=== PATIENT | male | born 1960 | race Caucasian/White ===

== ENCOUNTER 2017-11-12 23:00 | Inpatient (IN) | payer OTHER ==
[2017-11-13] MEDS ORDERED: ALBUTEROL/IPRATROPIUM (NEB) 3 ML AMP NEB (01:00)
[2017-11-13] MEDS ORDERED: NITROGLYCERIN (SL) 0.4 MG TAB SL (01:00)
[2017-11-13] MEDS ORDERED: ACETAMINOPHEN 650MG/20.3ML CUP PO (01:00)
[2017-11-13] MEDS: DEXTROSE 5%-0.45% NACL 1,000 ML IV ×3 (01:52→19:57)
[2017-11-13 06:16] LABS: ADD MAN DIFF? NO
[2017-11-13 06:18] LABS: BASOPHIL # 0.1 10^3/ul (0.0-0.1); BASOPHILS % 0.5 % (0.0-2.0); EOSINOPHILS # 0.3 10^3/ul (0.0-0.5); EOSINOPHILS % 2.6 % (0.0-7.0); HEMATOCRIT 44.1 % (42.0-52.0); HEMOGLOBIN 15.2 g/dl (14.0-18.0); LYMPHOCYTES # 2.8 10^3/ul (0.8-2.9); LYMPHOCYTES % 24.4 % (15.0-51.0); MEAN CORPUSCULAR HGB CONC 34.5 g/dl (32.0-37.0); MEAN PLATELET VOLUME 9.5 fl (7.4-10.4); MONOCYTES % 9.1 % (0.0-11.0); NEUTROPHIL # 7.1 10^3/ul (1.6-7.5); NEUTROPHILS % 62.5 % (39.0-77.0); NUCLEATED RED BLOOD CELLS # 0.1 10^3/ul (0.0-0.0); NUCLEATED RED BLOOD CELLS% 0.4 /100WBC (0.0-0.0); PLATELET COUNT 253 10^3/UL (140-415); RED BLOOD COUNT 5.07 10^6/ul (4.70-6.10); RED CELL DISTRIBUTION WIDTH 13.1 % (11.5-14.5)
[2017-11-13 06:18] LABS: WHITE BLOOD COUNT 11.4 10^3/ul (4.8-10.8)
[2017-11-13 06:46] LABS: ALANINE AMINOTRANSFERASE 63 IU/L (13-69); ALBUMIN/GLOBULIN RATIO 1.42; ALKALINE PHOSPHATASE 49 IU/L (42-121); ANION GAP 13 (8-16); ASPARTATE AMINO TRANSFERASE 28 IU/L (15-46); BILIRUBIN,INDIRECT 0.7 mg/dl (0-1.1); BILIRUBIN,TOTAL 0.7 mg/dl (0.2-1.3); BLOOD UREA NITROGEN 20 mg/dl (7-20); CALCIUM 8.5 mg/dl (8.4-10.2); CARBON DIOXIDE 28 mmol/L (21-31); CHLORIDE 103 mmol/L (97-110); CREATININE 1.24 mg/dl (0.61-1.24); GLUCOSE 104 mg/dl (70-220); MAGNESIUM 2.3 mg/dl (1.7-2.5); POTASSIUM 3.7 mmol/L (3.5-5.1); SODIUM 140 mmol/L (135-144); TOTAL PROTEIN 6.8 g/dl (6.1-8.1)
[2017-11-13] MEDS: FAMOTIDINE 20 MG INJ IV (09:07)
[2017-11-13] MEDS: FENOFIBRATE 48 MG TAB PO (09:08)
[2017-11-13] MEDS: LISINOPRIL 10 MG TAB PO (09:08)
[2017-11-13] MEDS: AMLODIPINE 5 MG TAB PO (09:08)
[2017-11-13] MEDS: morphine 2 MG INJ IV ×2 (10:09→18:08)
[2017-11-13 10:49] LABS: PLATELET COUNT 241 10^3/UL (140-415)
[2017-11-13 11:11] LABS: LACTIC ACID 1.1 mmol/L (0.5-2.0)
[2017-11-13 11:12] LABS: CREATINE KINASE 179 IU/L (23-200)
[2017-11-13 11:22] LABS: INR 2.96; PROTIME 31.7 Sec (11.9-14.9); PT RATIO 2.5
[2017-11-13 11:23] LABS: CK INDEX 1.4; CK-MB 2.53 ng/ml (0.0-2.4); THROMBIN TIME 15.1 SEC (13.8-19.1); TROPONIN-I < 0.012 ng/ml (0.00-0.12)
[2017-11-13 11:24] LABS: PARTIAL THROMBOPLASTIN TIME 60.1 Sec (25.0-35.0)
[2017-11-13] MEDS ORDERED: HEPARIN 1000 UNITS/ML 10 ML INJ IV (13:30)
[2017-11-13 13:41] LABS: ADD MAN DIFF? NO
[2017-11-13 13:41] LABS: WHITE BLOOD COUNT 11.5 10^3/ul (4.8-10.8)
[2017-11-13 13:42] LABS: BASOPHIL # 0.1 10^3/ul (0.0-0.1); BASOPHILS % 0.4 % (0.0-2.0); EOSINOPHILS # 0.3 10^3/ul (0.0-0.5); EOSINOPHILS % 2.5 % (0.0-7.0); HEMATOCRIT 44.2 % (42.0-52.0); HEMOGLOBIN 14.9 g/dl (14.0-18.0); LYMPHOCYTES # 2.6 10^3/ul (0.8-2.9); LYMPHOCYTES % 22.5 % (15.0-51.0); MEAN CORPUSCULAR HEMOGLOBIN 29.3 pg (29.0-33.0); MEAN CORPUSCULAR HGB CONC 33.7 g/dl (32.0-37.0); MEAN CORPUSCULAR VOLUME 86.8 fl (82.0-101.0); MEAN PLATELET VOLUME 9.3 fl (7.4-10.4); MONOCYTE # 0.9 10^3/ul (0.3-0.9); MONOCYTES % 7.5 % (0.0-11.0); NEUTROPHIL # 7.6 10^3/ul (1.6-7.5); NEUTROPHILS % 66.5 % (39.0-77.0); PLATELET COUNT 260 10^3/UL (140-415); RED BLOOD COUNT 5.09 10^6/ul (4.70-6.10); RED CELL DISTRIBUTION WIDTH 12.6 % (11.5-14.5)
[2017-11-13 13:58] LABS: INR 2.73; PROTIME 29.7 Sec (11.9-14.9); PT RATIO 2.3
[2017-11-13 13:59] LABS: PARTIAL THROMBOPLASTIN TIME 57.6 Sec (25.0-35.0)
[2017-11-13 14:01] LABS: CREATINE KINASE 173 IU/L (23-200)
[2017-11-13 14:11] LABS: CK INDEX 1.4
[2017-11-13 14:16] LABS: CK-MB 2.35 ng/ml (0.0-2.4); TROPONIN-I < 0.012 ng/ml (0.00-0.12)
[2017-11-13] MEDS ORDERED: LABETALOL 200 MG in SOD CHLORIDE 0.9% 160 ML IV (14:30)
[2017-11-13] MEDS: HYDROCHLOROTHIAZIDE 12.5 MG CAP PO (15:26)
[2017-11-13] MEDS: ONDANSETRON 4 MG INJ IV (18:07)
[2017-11-13] MEDS: HEPARIN 25000 UNITS/250 ML 250 ML IV (19:57)
[2017-11-13] MEDS: DOCUSATE SODIUM 100 MG CAP PO (20:44)
[2017-11-13] MEDS: ATORVASTATIN 40 MG TAB PO (20:45)
[2017-11-14] MEDS: morphine 2 MG INJ IV ×4 (00:17→20:33)
[2017-11-14 03:38] LABS: ADD MAN DIFF? NO
[2017-11-14 03:58] LABS: ANION GAP 11 (8-16); BLOOD UREA NITROGEN 15 mg/dl (7-20); CALCIUM 8.2 mg/dl (8.4-10.2); CARBON DIOXIDE 27 mmol/L (21-31); CHLORIDE 105 mmol/L (97-110); CREATININE 1.18 mg/dl (0.61-1.24); GLUCOSE 119 mg/dl (70-220); MAGNESIUM 2.3 mg/dl (1.7-2.5); PHOSPHORUS 2.9 mg/dl (2.5-4.9); POTASSIUM 3.5 mmol/L (3.5-5.1); SODIUM 139 mmol/L (135-144)
[2017-11-14 04:33] LABS: WHITE BLOOD COUNT 9.6 10^3/ul (4.8-10.8)
[2017-11-14 04:33] LABS: BASOPHILS % 0.4 % (0.0-2.0); EOSINOPHILS # 0.3 10^3/ul (0.0-0.5); EOSINOPHILS % 3.2 % (0.0-7.0); HEMATOCRIT 42.7 % (42.0-52.0); HEMOGLOBIN 14.6 g/dl (14.0-18.0); LYMPHOCYTES # 2.3 10^3/ul (0.8-2.9); LYMPHOCYTES % 23.8 % (15.0-51.0); MEAN CORPUSCULAR HEMOGLOBIN 29.9 pg (29.0-33.0); MEAN CORPUSCULAR HGB CONC 34.2 g/dl (32.0-37.0); MEAN CORPUSCULAR VOLUME 87.5 fl (82.0-101.0); MEAN PLATELET VOLUME 9.7 fl (7.4-10.4); MONOCYTE # 0.8 10^3/ul (0.3-0.9); MONOCYTES % 8.2 % (0.0-11.0); NEUTROPHIL # 6.1 10^3/ul (1.6-7.5); NEUTROPHILS % 63.7 % (39.0-77.0); PLATELET COUNT 240 10^3/UL (140-415); RED BLOOD COUNT 4.88 10^6/ul (4.70-6.10); RED CELL DISTRIBUTION WIDTH 12.5 % (11.5-14.5)
[2017-11-14 04:59] LABS: PARTIAL THROMBOPLASTIN TIME > 180.0 Sec (25.0-35.0)
[2017-11-14] MEDS: DEXTROSE 5%-0.45% NACL 1,000 ML IV ×3 (05:37→16:35)
[2017-11-14] MEDS: FENOFIBRATE 48 MG TAB PO (10:42)
[2017-11-14] MEDS: DOCUSATE SODIUM 100 MG CAP PO ×2 (10:42→20:32)
[2017-11-14] MEDS: HYDROCHLOROTHIAZIDE 12.5 MG CAP PO (10:43)
[2017-11-14] MEDS: LISINOPRIL 10 MG TAB PO (10:44)
[2017-11-14] MEDS: AMLODIPINE 5 MG TAB PO (10:44)
[2017-11-14] MEDS: HEPARIN 25000 UNITS/250 ML 250 ML IV (10:49)
[2017-11-14 17:34] LABS: PARTIAL THROMBOPLASTIN TIME 76.8 Sec (25.0-35.0)
[2017-11-14] MEDS: ATORVASTATIN 40 MG TAB PO (20:32)
[2017-11-15] MEDS: morphine 2 MG INJ IV ×2 (00:58→17:59)
[2017-11-15] MEDS: DEXTROSE 5%-0.45% NACL 1,000 ML IV ×3 (00:58→20:53)
[2017-11-15 02:31] LABS: PARTIAL THROMBOPLASTIN TIME 77.7 Sec (25.0-35.0)
[2017-11-15] MEDS: HEPARIN 25000 UNITS/250 ML 250 ML IV (02:58)
[2017-11-15] MEDS: LORAZEPAM 2 MG INJ IV ×5 (03:08→23:43)
[2017-11-15] MEDS: HYDROCHLOROTHIAZIDE 12.5 MG CAP PO (08:02)
[2017-11-15] MEDS: LISINOPRIL 10 MG TAB PO (08:03)
[2017-11-15] MEDS: AMLODIPINE 5 MG TAB PO (08:03)
[2017-11-15] MEDS: DOCUSATE SODIUM 100 MG CAP PO ×2 (08:03→20:52)
[2017-11-15] MEDS: FENOFIBRATE 48 MG TAB PO (08:03)
[2017-11-15 09:39] LABS: PARTIAL THROMBOPLASTIN TIME 55.4 Sec (25.0-35.0)
[2017-11-15 14:04] LABS: LACTIC ACID 1.3 mmol/L (0.5-2.0)
[2017-11-15] MEDS: ATORVASTATIN 40 MG TAB PO (20:53)
[2017-11-16 00:33] LABS: PARTIAL THROMBOPLASTIN TIME 64.8 Sec (25.0-35.0)
[2017-11-16 05:31] LABS: ADD MAN DIFF? NO
[2017-11-16 05:34] LABS: BASOPHILS % 0.4 % (0.0-2.0); EOSINOPHILS # 0.3 10^3/ul (0.0-0.5); EOSINOPHILS % 3.6 % (0.0-7.0); HEMATOCRIT 41.6 % (42.0-52.0); HEMOGLOBIN 14.2 g/dl (14.0-18.0); LYMPHOCYTES # 1.7 10^3/ul (0.8-2.9); LYMPHOCYTES % 23.2 % (15.0-51.0); MEAN CORPUSCULAR HEMOGLOBIN 29.9 pg (29.0-33.0); MEAN CORPUSCULAR HGB CONC 34.1 g/dl (32.0-37.0); MEAN CORPUSCULAR VOLUME 87.6 fl (82.0-101.0); MEAN PLATELET VOLUME 9.6 fl (7.4-10.4); MONOCYTE # 0.7 10^3/ul (0.3-0.9); MONOCYTES % 8.8 % (0.0-11.0); NEUTROPHIL # 4.8 10^3/ul (1.6-7.5); NEUTROPHILS % 63.6 % (39.0-77.0); PLATELET COUNT 237 10^3/UL (140-415); RED BLOOD COUNT 4.75 10^6/ul (4.70-6.10)
[2017-11-16 05:34] LABS: WHITE BLOOD COUNT 7.5 10^3/ul (4.8-10.8)
[2017-11-16 05:53] LABS: ALANINE AMINOTRANSFERASE 59 IU/L (13-69); ALBUMIN 3.6 g/dl (3.3-4.9); ALBUMIN/GLOBULIN RATIO 1.05; ALKALINE PHOSPHATASE 71 IU/L (42-121); ANION GAP 10 (8-16); ASPARTATE AMINO TRANSFERASE 27 IU/L (15-46); BILIRUBIN,INDIRECT 0.7 mg/dl (0-1.1); BILIRUBIN,TOTAL 0.7 mg/dl (0.2-1.3); BLOOD UREA NITROGEN 9 mg/dl (7-20); CALCIUM 8.7 mg/dl (8.4-10.2); CARBON DIOXIDE 22 mmol/L (21-31); CHLORIDE 108 mmol/L (97-110); CREATININE 1.06 mg/dl (0.61-1.24); GLUCOSE 134 mg/dl (70-220); POTASSIUM 3.4 mmol/L (3.5-5.1); SODIUM 137 mmol/L (135-144)
[2017-11-16] MEDS: DEXTROSE 5%-0.45% NACL 1,000 ML IV ×2 (06:55→16:26)
[2017-11-16] MEDS: HYDROCHLOROTHIAZIDE 12.5 MG CAP PO (08:23)
[2017-11-16] MEDS: AMLODIPINE 5 MG TAB PO (08:23)
[2017-11-16] MEDS: LISINOPRIL 10 MG TAB PO (08:23)
[2017-11-16] MEDS: FENOFIBRATE 48 MG TAB PO (08:24)
[2017-11-16] MEDS: LORAZEPAM 2 MG INJ IV ×4 (08:24→23:25)
[2017-11-16] MEDS: DOCUSATE SODIUM 100 MG CAP PO ×2 (08:24→20:52)
[2017-11-16 08:25] LABS: PARTIAL THROMBOPLASTIN TIME 64.2 Sec (25.0-35.0)
[2017-11-16] MEDS: HEPARIN 25000 UNITS/250 ML 250 ML IV (10:39)
[2017-11-16] MEDS: morphine 2 MG INJ IV ×2 (11:20→17:21)
[2017-11-16 14:26] LABS: PARTIAL THROMBOPLASTIN TIME 64.9 Sec (25.0-35.0)
[2017-11-16 20:21] LABS: PARTIAL THROMBOPLASTIN TIME 67.6 Sec (25.0-35.0)
[2017-11-16] MEDS: ATORVASTATIN 40 MG TAB PO (20:51)
[2017-11-17 05:10] LABS: PARTIAL THROMBOPLASTIN TIME 70.8 Sec (25.0-35.0)
[2017-11-17] MEDS: DOCUSATE SODIUM 100 MG CAP PO ×2 (08:26→21:00)
[2017-11-17] MEDS: AMLODIPINE 5 MG TAB PO (08:27)
[2017-11-17] MEDS: HYDROCHLOROTHIAZIDE 12.5 MG CAP PO (08:27)
[2017-11-17] MEDS: FENOFIBRATE 48 MG TAB PO (08:27)
[2017-11-17] MEDS: LISINOPRIL 10 MG TAB PO (08:28)
[2017-11-17] MEDS: HEPARIN 25000 UNITS/250 ML 250 ML IV (11:12)
[2017-11-17] MEDS: LORAZEPAM 2 MG INJ IV ×2 (11:28→21:14)
[2017-11-17 12:02] LABS: PARTIAL THROMBOPLASTIN TIME 58.8 Sec (25.0-35.0)
[2017-11-17] MEDS: morphine LIQ (10 MG/5 ML) CUP PO ×2 (14:15→18:57)
[2017-11-17 18:57] LABS: INR 1.04; PROTIME 13.7 Sec (11.9-14.9); PT RATIO 1.1
[2017-11-17] MEDS: WARFARIN 2 MG TAB PO (19:13)
[2017-11-17] MEDS: ATORVASTATIN 40 MG TAB PO (21:09)
[2017-11-18] MEDS: morphine LIQ (10 MG/5 ML) CUP PO ×3 (05:29→19:48)
[2017-11-18 06:43] LABS: INR 0.98; PROTIME 13.1 Sec (11.9-14.9)
[2017-11-18 06:51] LABS: PARTIAL THROMBOPLASTIN TIME 64.2 Sec (25.0-35.0)
[2017-11-18] MEDS: HYDROCHLOROTHIAZIDE 12.5 MG CAP PO (08:40)
[2017-11-18] MEDS: LISINOPRIL 10 MG TAB PO (08:40)
[2017-11-18] MEDS: FENOFIBRATE 48 MG TAB PO (08:40)
[2017-11-18] MEDS: DOCUSATE SODIUM 100 MG CAP PO ×2 (08:40→20:04)
[2017-11-18] MEDS: AMLODIPINE 5 MG TAB PO (08:41)
[2017-11-18] MEDS: WARFARIN 2 MG TAB PO (17:39)
[2017-11-18] MEDS: IOHEXOL 100 ML (18:24)
[2017-11-18] MEDS: SOD CHLORIDE 0.9% 100 ML (18:24)
[2017-11-18] MEDS: HEPARIN 25000 UNITS/250 ML 250 ML IV (19:11)
[2017-11-18] MEDS: ATORVASTATIN 40 MG TAB PO (20:04)
[2017-11-19] MEDS: morphine LIQ (10 MG/5 ML) CUP PO ×3 (00:45→23:12)
[2017-11-19 06:46] LABS: INR 1.05; PROTIME 13.8 Sec (11.9-14.9); PT RATIO 1.1
[2017-11-19 06:47] LABS: PARTIAL THROMBOPLASTIN TIME 61.8 Sec (25.0-35.0)
[2017-11-19] MEDS: DOCUSATE SODIUM 100 MG CAP PO ×2 (09:03→20:53)
[2017-11-19] MEDS: HYDROCHLOROTHIAZIDE 12.5 MG CAP PO (09:04)
[2017-11-19] MEDS: AMLODIPINE 5 MG TAB PO (09:04)
[2017-11-19] MEDS: FENOFIBRATE 48 MG TAB PO (09:04)
[2017-11-19] MEDS: LISINOPRIL 10 MG TAB PO (09:05)
[2017-11-19] MEDS: WARFARIN 2 MG TAB PO (17:10)
[2017-11-19] MEDS: ATORVASTATIN 40 MG TAB PO (20:54)
[2017-11-20] MEDS: HEPARIN 25000 UNITS/250 ML 250 ML IV (02:52)
[2017-11-20 06:03] LABS: INR 1.28; PROTIME 16.2 Sec (11.9-14.9); PT RATIO 1.3
[2017-11-20 07:44] LABS: PARTIAL THROMBOPLASTIN TIME 90.8 Sec (25.0-35.0)
[2017-11-20 08:28] LABS: ANION GAP 18 (8-16); BLOOD UREA NITROGEN 12 mg/dl (7-20); CALCIUM 9.4 mg/dl (8.4-10.2); CARBON DIOXIDE 22 mmol/L (21-31); CHLORIDE 106 mmol/L (97-110); CREATININE 1.29 mg/dl (0.61-1.24); GLUCOSE 99 mg/dl (70-220); MAGNESIUM 2.1 mg/dl (1.7-2.5); PHOSPHORUS 3.9 mg/dl (2.5-4.9); SODIUM 142 mmol/L (135-144)
[2017-11-20] MEDS: HYDROCHLOROTHIAZIDE 12.5 MG CAP PO (10:55)
[2017-11-20] MEDS: AMLODIPINE 5 MG TAB PO (10:55)
[2017-11-20] MEDS: DOCUSATE SODIUM 100 MG CAP PO ×2 (10:56→21:13)
[2017-11-20] MEDS: LISINOPRIL 10 MG TAB PO (10:56)
[2017-11-20] MEDS: FENOFIBRATE 48 MG TAB PO (10:58)
[2017-11-20] MEDS: morphine LIQ (10 MG/5 ML) CUP PO ×2 (11:27→22:00)
[2017-11-20 16:19] LABS: PARTIAL THROMBOPLASTIN TIME 92.4 Sec (25.0-35.0)
[2017-11-20] MEDS ORDERED: VITAMIN A & D 5 GM OINT PACKET TOP (17:07)
[2017-11-20] MEDS: WARFARIN 2 MG TAB PO (17:47)
[2017-11-20] MEDS: ATORVASTATIN 40 MG TAB PO (21:13)
[2017-11-21 06:12] LABS: ADD MAN DIFF? NO
[2017-11-21 06:18] LABS: BASOPHIL # 0.1 10^3/ul (0.0-0.1); BASOPHILS % 0.8 % (0.0-2.0); EOSINOPHILS # 0.2 10^3/ul (0.0-0.5); EOSINOPHILS % 3.4 % (0.0-7.0); HEMOGLOBIN 14.2 g/dl (14.0-18.0); LYMPHOCYTES # 1.7 10^3/ul (0.8-2.9); LYMPHOCYTES % 28.6 % (15.0-51.0); MEAN CORPUSCULAR HEMOGLOBIN 29.5 pg (29.0-33.0); MEAN CORPUSCULAR HGB CONC 33.8 g/dl (32.0-37.0); MEAN CORPUSCULAR VOLUME 87.3 fl (82.0-101.0); MEAN PLATELET VOLUME 10.3 fl (7.4-10.4); MONOCYTE # 0.4 10^3/ul (0.3-0.9); MONOCYTES % 7.1 % (0.0-11.0); NEUTROPHIL # 3.6 10^3/ul (1.6-7.5); NEUTROPHILS % 59.8 % (39.0-77.0); NUCLEATED RED BLOOD CELLS% 0.3 /100WBC (0.0-0.0); PLATELET COUNT 238 10^3/UL (140-415); RED BLOOD COUNT 4.81 10^6/ul (4.70-6.10); RED CELL DISTRIBUTION WIDTH 12.5 % (11.5-14.5)
[2017-11-21 06:41] LABS: ANION GAP 15 (8-16); BLOOD UREA NITROGEN 14 mg/dl (7-20); CALCIUM 9.2 mg/dl (8.4-10.2); CARBON DIOXIDE 24 mmol/L (21-31); CHLORIDE 106 mmol/L (97-110); CREATININE 1.19 mg/dl (0.61-1.24); GLUCOSE 101 mg/dl (70-220); POTASSIUM 4.1 mmol/L (3.5-5.1); SODIUM 141 mmol/L (135-144)
[2017-11-21 06:42] LABS: PARTIAL THROMBOPLASTIN TIME 64.9 Sec (25.0-35.0)
[2017-11-21 07:02] LABS: INR 1.53; PROTIME 18.7 Sec (11.9-14.9); PT RATIO 1.5
[2017-11-21] MEDS: AMLODIPINE 5 MG TAB PO (08:22)
[2017-11-21] MEDS: FENOFIBRATE 48 MG TAB PO (08:22)
[2017-11-21] MEDS: DOCUSATE SODIUM 100 MG CAP PO ×2 (08:22→20:45)
[2017-11-21] MEDS: LISINOPRIL 10 MG TAB PO (08:23)
[2017-11-21] MEDS: HYDROCHLOROTHIAZIDE 12.5 MG CAP PO (08:24)
[2017-11-21] MEDS: morphine LIQ (10 MG/5 ML) CUP PO (12:34)
[2017-11-21 12:37] LABS: PARTIAL THROMBOPLASTIN TIME 60.7 Sec (25.0-35.0)
[2017-11-21] MEDS: WARFARIN 2 MG TAB PO (16:14)
[2017-11-21] MEDS: HEPARIN 25000 UNITS/250 ML 250 ML IV (18:51)
[2017-11-21] MEDS: ATORVASTATIN 40 MG TAB PO (20:45)
[2017-11-22 06:03] LABS: ADD MAN DIFF? NO
[2017-11-22 06:06] LABS: BASOPHILS % 0.7 % (0.0-2.0); EOSINOPHILS # 0.2 10^3/ul (0.0-0.5); EOSINOPHILS % 3.4 % (0.0-7.0); HEMATOCRIT 40.8 % (42.0-52.0); LYMPHOCYTES # 1.7 10^3/ul (0.8-2.9); LYMPHOCYTES % 31.2 % (15.0-51.0); MEAN CORPUSCULAR HEMOGLOBIN 30.5 pg (29.0-33.0); MEAN CORPUSCULAR HGB CONC 34.3 g/dl (32.0-37.0); MEAN CORPUSCULAR VOLUME 88.9 fl (82.0-101.0); MEAN PLATELET VOLUME 9.9 fl (7.4-10.4); MONOCYTE # 0.4 10^3/ul (0.3-0.9); MONOCYTES % 7.1 % (0.0-11.0); NEUTROPHIL # 3.2 10^3/ul (1.6-7.5); NEUTROPHILS % 57.2 % (39.0-77.0); PLATELET COUNT 240 10^3/UL (140-415); RED BLOOD COUNT 4.59 10^6/ul (4.70-6.10); RED CELL DISTRIBUTION WIDTH 12.4 % (11.5-14.5)
[2017-11-22 06:06] LABS: WHITE BLOOD COUNT 5.5 10^3/ul (4.8-10.8)
[2017-11-22 06:26] LABS: INR 1.61; PROTIME 19.5 Sec (11.9-14.9); PT RATIO 1.5
[2017-11-22 06:42] LABS: ANION GAP 14 (8-16); BLOOD UREA NITROGEN 16 mg/dl (7-20); CALCIUM 9.2 mg/dl (8.4-10.2); CARBON DIOXIDE 24 mmol/L (21-31); CHLORIDE 108 mmol/L (97-110); GLUCOSE 105 mg/dl (70-220); POTASSIUM 4.2 mmol/L (3.5-5.1); SODIUM 142 mmol/L (135-144)
[2017-11-22] MEDS: LISINOPRIL 10 MG TAB PO (08:29)
[2017-11-22] MEDS: DOCUSATE SODIUM 100 MG CAP PO ×2 (08:29→20:39)
[2017-11-22] MEDS: AMLODIPINE 5 MG TAB PO (08:30)
[2017-11-22] MEDS: HYDROCHLOROTHIAZIDE 12.5 MG CAP PO (08:30)
[2017-11-22] MEDS: FENOFIBRATE 48 MG TAB PO (08:30)
[2017-11-22 10:32] LABS: PARTIAL THROMBOPLASTIN TIME 92.7 Sec (25.0-35.0)
[2017-11-22] MEDS: morphine LIQ (10 MG/5 ML) CUP PO (13:39)
[2017-11-22] MEDS: WARFARIN 2 MG TAB PO (16:24)
[2017-11-22 18:03] LABS: PARTIAL THROMBOPLASTIN TIME 56.5 Sec (25.0-35.0)
[2017-11-22] MEDS: ATORVASTATIN 40 MG TAB PO (20:40)
[2017-11-23 02:30] LABS: PARTIAL THROMBOPLASTIN TIME 81.9 Sec (25.0-35.0)
[2017-11-23] MEDS: HYDROCHLOROTHIAZIDE 12.5 MG CAP PO (08:12)
[2017-11-23] MEDS: DOCUSATE SODIUM 100 MG CAP PO ×2 (08:12→21:16)
[2017-11-23] MEDS: AMLODIPINE 5 MG TAB PO (08:13)
[2017-11-23] MEDS: FENOFIBRATE 48 MG TAB PO (08:13)
[2017-11-23] MEDS: LISINOPRIL 10 MG TAB PO (08:14)
[2017-11-23 09:00] LABS: ADD MAN DIFF? NO
[2017-11-23 09:10] LABS: BASOPHILS % 0.7 % (0.0-2.0); EOSINOPHILS # 0.2 10^3/ul (0.0-0.5); EOSINOPHILS % 3.3 % (0.0-7.0); HEMATOCRIT 45.1 % (42.0-52.0); HEMOGLOBIN 14.7 g/dl (14.0-18.0); LYMPHOCYTES # 1.9 10^3/ul (0.8-2.9); LYMPHOCYTES % 32.9 % (15.0-51.0); MEAN CORPUSCULAR HEMOGLOBIN 29.1 pg (29.0-33.0); MEAN CORPUSCULAR HGB CONC 32.6 g/dl (32.0-37.0); MEAN CORPUSCULAR VOLUME 89.1 fl (82.0-101.0); MEAN PLATELET VOLUME 9.9 fl (7.4-10.4); MONOCYTE # 0.3 10^3/ul (0.3-0.9); MONOCYTES % 5.6 % (0.0-11.0); NEUTROPHIL # 3.3 10^3/ul (1.6-7.5); PLATELET COUNT 301 10^3/UL (140-415); RED BLOOD COUNT 5.06 10^6/ul (4.70-6.10); RED CELL DISTRIBUTION WIDTH 12.2 % (11.5-14.5)
[2017-11-23 09:10] LABS: WHITE BLOOD COUNT 5.7 10^3/ul (4.8-10.8)
[2017-11-23 09:25] LABS: INR 1.74; PROTIME 20.7 Sec (11.9-14.9); PT RATIO 1.6
[2017-11-23 09:28] LABS: PARTIAL THROMBOPLASTIN TIME 61.1 Sec (25.0-35.0)
[2017-11-23 09:30] LABS: ANION GAP 16 (8-16); BLOOD UREA NITROGEN 19 mg/dl (7-20); CALCIUM 9.5 mg/dl (8.4-10.2); CARBON DIOXIDE 24 mmol/L (21-31); CHLORIDE 105 mmol/L (97-110); GLUCOSE 131 mg/dl (70-220); POTASSIUM 4.2 mmol/L (3.5-5.1); SODIUM 141 mmol/L (135-144)
[2017-11-23] MEDS: WARFARIN 2 MG TAB PO (17:11)
[2017-11-23] MEDS: HEPARIN 25000 UNITS/250 ML 250 ML IV (17:18)
[2017-11-23 20:33] LABS: PARTIAL THROMBOPLASTIN TIME 55.9 Sec (25.0-35.0)
[2017-11-23] MEDS: ATORVASTATIN 40 MG TAB PO (21:17)
[2017-11-24 03:41] LABS: ADD MAN DIFF? NO
[2017-11-24 03:43] LABS: BASOPHILS % 0.6 % (0.0-2.0); EOSINOPHILS # 0.2 10^3/ul (0.0-0.5); EOSINOPHILS % 3.6 % (0.0-7.0); HEMATOCRIT 39.8 % (42.0-52.0); HEMOGLOBIN 13.3 g/dl (14.0-18.0); LYMPHOCYTES # 2.1 10^3/ul (0.8-2.9); LYMPHOCYTES % 42.4 % (15.0-51.0); MEAN CORPUSCULAR HEMOGLOBIN 29.3 pg (29.0-33.0); MEAN CORPUSCULAR HGB CONC 33.4 g/dl (32.0-37.0); MEAN CORPUSCULAR VOLUME 87.7 fl (82.0-101.0); MEAN PLATELET VOLUME 9.7 fl (7.4-10.4); MONOCYTE # 0.4 10^3/ul (0.3-0.9); MONOCYTES % 7.6 % (0.0-11.0); NEUTROPHIL # 2.3 10^3/ul (1.6-7.5); NEUTROPHILS % 45.2 % (39.0-77.0); PLATELET COUNT 268 10^3/UL (140-415); RED BLOOD COUNT 4.54 10^6/ul (4.70-6.10); RED CELL DISTRIBUTION WIDTH 12.1 % (11.5-14.5)
[2017-11-24 04:00] LABS: ANION GAP 15 (8-16); BLOOD UREA NITROGEN 20 mg/dl (7-20); CALCIUM 8.9 mg/dl (8.4-10.2); CARBON DIOXIDE 25 mmol/L (21-31); CHLORIDE 106 mmol/L (97-110); GLUCOSE 105 mg/dl (70-220); POTASSIUM 3.9 mmol/L (3.5-5.1); SODIUM 142 mmol/L (135-144)
[2017-11-24 04:14] LABS: INR 1.91; PROTIME 22.3 Sec (11.9-14.9); PT RATIO 1.7
[2017-11-24 04:39] LABS: PARTIAL THROMBOPLASTIN TIME 83.5 Sec (25.0-35.0)
[2017-11-24] MEDS: DOCUSATE SODIUM 100 MG CAP PO (08:21)
[2017-11-24] MEDS: HYDROCHLOROTHIAZIDE 12.5 MG CAP PO (08:23)
[2017-11-24] MEDS: AMLODIPINE 5 MG TAB PO (08:23)
[2017-11-24] MEDS: FENOFIBRATE 48 MG TAB PO (08:23)
[2017-11-24] MEDS: LISINOPRIL 10 MG TAB PO (08:24)
[2017-11-24 11:33] LABS: PARTIAL THROMBOPLASTIN TIME 65.1 Sec (25.0-35.0)
[2017-11-24] MEDS: WARFARIN 2 MG TAB PO (13:40)
== END 2017-11-24 15:10 | disposition home or self-care (01) | DRG 299 ==
LOC: MS2 11-16 22:45 → ICU 23:00
DX: I77.79 Dissection of other specified artery (principal); K55.069 Acute infarction of intestine, part and extent unspecified; I10 Essential (primary) hypertension; E78.00 Pure hypercholesterolemia, unspecified; Z86.73 Personal history of transient ischemic attack (TIA), and cerebral infarction without residual deficits; Z79.01 Long term (current) use of anticoagulants
CPT/HCPCS: 71046; 75635; 80048; 80053; 82550; 82553; 83605; 83735; 84100; 84484; 85025; 85049; 85610; 85670; 85730; 87081; 93306

== ENCOUNTER 2017-12-26 19:23 | Inpatient (IN) | payer OTHER ==
[2017-12-26 23:53] LABS: ADD MAN DIFF? NO
[2017-12-26] MEDS: SOD CHLORIDE 0.9% 500 ML IV (23:54)
[2017-12-26 23:55] LABS: BASOPHIL # 0.1 10^3/ul (0.0-0.1); BASOPHILS % 0.5 % (0.0-2.0); EOSINOPHILS # 0.2 10^3/ul (0.0-0.5); EOSINOPHILS % 1.8 % (0.0-7.0); HEMATOCRIT 40.5 % (42.0-52.0); HEMOGLOBIN 13.9 g/dl (14.0-18.0); LYMPHOCYTES # 2.1 10^3/ul (0.8-2.9); MEAN CORPUSCULAR HEMOGLOBIN 29.6 pg (29.0-33.0); MEAN CORPUSCULAR HGB CONC 34.3 g/dl (32.0-37.0); MEAN CORPUSCULAR VOLUME 86.2 fl (82.0-101.0); MEAN PLATELET VOLUME 9.6 fl (7.4-10.4); MONOCYTE # 0.9 10^3/ul (0.3-0.9); MONOCYTES % 8.4 % (0.0-11.0); NEUTROPHIL # 7.6 10^3/ul (1.6-7.5); NEUTROPHILS % 69.8 % (39.0-77.0); PLATELET COUNT 297 10^3/UL (140-415); RED CELL DISTRIBUTION WIDTH 12.7 % (11.5-14.5)
[2017-12-26 23:55] LABS: WHITE BLOOD COUNT 10.9 10^3/ul (4.8-10.8)
[2017-12-27 00:14] LABS: ALANINE AMINOTRANSFERASE 38 IU/L (13-69); ALBUMIN 5.3 g/dl (3.3-4.9); ALBUMIN/GLOBULIN RATIO 1.51; ALKALINE PHOSPHATASE 53 IU/L (42-121); ANION GAP 19 (8-16); ASPARTATE AMINO TRANSFERASE 34 IU/L (15-46); BILIRUBIN,INDIRECT 0.5 mg/dl (0-1.1); BILIRUBIN,TOTAL 0.5 mg/dl (0.2-1.3); BLOOD UREA NITROGEN 12 mg/dl (7-20); CALCIUM 9.6 mg/dl (8.4-10.2); CARBON DIOXIDE 26 mmol/L (21-31); CHLORIDE 105 mmol/L (97-110); CREATININE 1.05 mg/dl (0.61-1.24); GLUCOSE 88 mg/dl (70-220); POTASSIUM 3.5 mmol/L (3.5-5.1); SODIUM 146 mmol/L (135-144); TOTAL PROTEIN 8.8 g/dl (6.1-8.1)
[2017-12-27 00:16] LABS: PROTIME 37.1 Sec (11.9-14.9); PT RATIO 2.9
[2017-12-27 00:20] LABS: PARTIAL THROMBOPLASTIN TIME 72.1 Sec (25.0-35.0)
[2017-12-27 00:21] LABS: B-TYPE NATRIURETIC PEPTIDE 42 PG/ML (0-125)
[2017-12-27 00:28] LABS: TROPONIN-I < 0.012 ng/ml (0.00-0.12)
[2017-12-27] MEDS ORDERED: ACETAMINOPHEN 325 MG TAB (01:09)
[2017-12-27] MEDS: ACETAMINOPHEN 325 MG TAB PO ×3 (01:12→20:33)
[2017-12-27] MEDS ORDERED: DOCUSATE SODIUM 100 MG CAP PO (01:30)
[2017-12-27] MEDS ORDERED: NACL 0.9% 3 ML SYG IV (01:30)
[2017-12-27] MEDS ORDERED: BISACODYL (EC) 5 MG TAB PO (01:30)
[2017-12-27] MEDS: SOD CHLORIDE 0.9% 1,000 ML IV ×2 (02:20→05:09)
[2017-12-27] MEDS: HYDROCODONE/HOMATROPINE 5ML CUP PO ×2 (03:27→21:45)
[2017-12-27] MEDS: ATORVASTATIN 40 MG TAB PO (05:16)
[2017-12-27 06:23] LABS: CREATINE KINASE 370 IU/L (23-200)
[2017-12-27 06:32] LABS: CK INDEX 0.9
[2017-12-27 06:33] LABS: CK-MB 3.21 ng/ml (0.0-2.4); TROPONIN-I < 0.012 ng/ml (0.00-0.12)
[2017-12-27] MEDS: BENZONATATE 100 MG CAP PO ×3 (08:31→20:25)
[2017-12-27] MEDS ORDERED: GUAIFENESIN/DM 5ML CUP PO (09:00)
[2017-12-27] MEDS ORDERED: hydrALAzine 20 MG INJ IV (09:30)
[2017-12-27 09:39] LABS: THYROID STIMULATING HORMONE 0.784 MIU/L (0.465-4.680)
[2017-12-27] MEDS: LISINOPRIL 10 MG TAB PO (10:58)
[2017-12-27] MEDS: FENOFIBRATE 48 MG TAB PO (10:59)
[2017-12-27] MEDS: AMOXICILLIN/CLAV 875 MG TAB PO ×2 (11:03→20:25)
[2017-12-27] MEDS: AMLODIPINE 5 MG TAB PO ×2 (11:38→20:33)
[2017-12-27 11:43] LABS: CREATINE KINASE 376 IU/L (23-200)
[2017-12-27 11:44] LABS: FREE T4 (FREE THYROXINE) 1.66 ng/dl (0.64-1.79)
[2017-12-27 11:46] LABS: ADD UMIC YES; UR ASCORBIC ACID NEGATIVE (NEGATIVE); UR BILIRUBIN (Dip) NEGATIVE (NEGATIVE); UR BLOOD (Dip) NEGATIVE (NEGATIVE); UR CLARITY CLEAR (CLEAR); UR COLOR STRAW (YELLOW); UR GLUCOSE (Dip) 1+ mg/dL (NEGATIVE); UR KETONES (Dip) NEGATIVE (NEGATIVE); UR LEUKOCYTE ESTERASE (Dip) TRACE Leu/ul (NEGATIVE); UR NITRITE (Dip) NEGATIVE (NEGATIVE); UR RBC 1 /HPF (0-5); UR TOTAL PROTEIN (Dip) NEGATIVE (NEGATIVE); UR UROBILINOGEN (Dip) NEGATIVE (NEGATIVE); UR WBC 2 /HPF (0-5)
[2017-12-27 11:49] LABS: CK INDEX 0.6
[2017-12-27 11:55] LABS: CK-MB 2.37 ng/ml (0.0-2.4)
[2017-12-27 11:59] LABS: AMPHETAMINE/METHAMPHETAMINE Negative (NEGATIVE); BARBITURATES Negative (NEGATIVE); BENZODIAZEPINES Negative (NEGATIVE); CANNABINOIDS Negative (NEGATIVE); COCAINE Negative (NEGATIVE); OPIATES Positive (NEGATIVE)
[2017-12-27 12:21] LABS: TROPONIN-I < 0.012 ng/ml (0.00-0.12)
[2017-12-27] MEDS: HYDROCODONE/APAP (5/325) TAB PO (13:24)
[2017-12-27] MEDS: ALBUTEROL 0.083% (NEB) 2.5 MG/3 ML AMP HHN ×2 (14:00→19:43)
[2017-12-28] MEDS: ALBUTEROL 0.083% (NEB) 2.5 MG/3 ML AMP HHN ×5 (04:46→19:55)
[2017-12-28 05:53] LABS: ADD MAN DIFF? NO
[2017-12-28 05:57] LABS: WHITE BLOOD COUNT 9.5 10^3/ul (4.8-10.8)
[2017-12-28 05:57] LABS: BASOPHIL # 0.1 10^3/ul (0.0-0.1); BASOPHILS % 0.5 % (0.0-2.0); EOSINOPHILS # 0.2 10^3/ul (0.0-0.5); EOSINOPHILS % 2.4 % (0.0-7.0); HEMATOCRIT 37.1 % (42.0-52.0); HEMOGLOBIN 12.8 g/dl (14.0-18.0); LYMPHOCYTES # 2.1 10^3/ul (0.8-2.9); LYMPHOCYTES % 22.5 % (15.0-51.0); MEAN CORPUSCULAR HEMOGLOBIN 29.5 pg (29.0-33.0); MEAN CORPUSCULAR HGB CONC 34.5 g/dl (32.0-37.0); MEAN CORPUSCULAR VOLUME 85.5 fl (82.0-101.0); MEAN PLATELET VOLUME 9.8 fl (7.4-10.4); MONOCYTE # 0.9 10^3/ul (0.3-0.9); MONOCYTES % 9.9 % (0.0-11.0); NEUTROPHIL # 6.1 10^3/ul (1.6-7.5); NEUTROPHILS % 64.4 % (39.0-77.0); PLATELET COUNT 277 10^3/UL (140-415); RED BLOOD COUNT 4.34 10^6/ul (4.70-6.10)
[2017-12-28 06:18] LABS: CHOL/HDL RATIO 2.7 RATIO; CHOLESTEROL 147 mg/dl (100-200); HDL CHOLESTEROL 53 mg/dl (28-71); INR 3.21; LDL CHOLESTEROL,CALCULATED 74 mg/dl; PROTIME 33.8 Sec (11.9-14.9); PT RATIO 2.6; TRIGLYCERIDES 99 mg/dl (0-149)
[2017-12-28 06:18] LABS: PHOSPHORUS 2.9 mg/dl (2.5-4.9)
[2017-12-28 06:43] LABS: ALANINE AMINOTRANSFERASE 53 IU/L (13-69); ALBUMIN 4.5 g/dl (3.3-4.9); ALKALINE PHOSPHATASE 56 IU/L (42-121); ANION GAP 15 (8-16); ASPARTATE AMINO TRANSFERASE 45 IU/L (15-46); BILIRUBIN,INDIRECT 0.8 mg/dl (0-1.1); BILIRUBIN,TOTAL 0.8 mg/dl (0.2-1.3); BLOOD UREA NITROGEN 10 mg/dl (7-20); CALCIUM 8.7 mg/dl (8.4-10.2); CARBON DIOXIDE 25 mmol/L (21-31); CHLORIDE 107 mmol/L (97-110); CREATININE 0.89 mg/dl (0.61-1.24); GLUCOSE 90 mg/dl (70-220); MAGNESIUM 2.3 mg/dl (1.7-2.5); POTASSIUM 3.4 mmol/L (3.5-5.1); SODIUM 144 mmol/L (135-144); TOTAL PROTEIN 7.7 g/dl (6.1-8.1)
[2017-12-28 06:51] LABS: THYROID STIMULATING HORMONE 0.676 MIU/L (0.465-4.680)
[2017-12-28 07:14] LABS: HEMOGLOBIN A1C 5.8 % (0-5.9)
[2017-12-28] MEDS: AMOXICILLIN/CLAV 875 MG TAB PO ×2 (08:13→21:27)
[2017-12-28] MEDS: BENZONATATE 100 MG CAP PO ×3 (08:13→21:27)
[2017-12-28] MEDS: FENOFIBRATE 145 MG TAB PO (08:13)
[2017-12-28] MEDS: HYDROCODONE/HOMATROPINE 5ML CUP PO ×2 (08:17→14:17)
[2017-12-28] MEDS: ACETAMINOPHEN 325 MG TAB PO (12:43)
[2017-12-28] MEDS: FLUTICASONE 0.05% 16 GM NAS SPRAY NASAL ×2 (14:17→21:25)
[2017-12-28] MEDS: WARFARIN 2 MG TAB PO (16:27)
[2017-12-28] MEDS: AMLODIPINE 5 MG TAB PO (21:26)
[2017-12-28] MEDS: LOSARTAN 50 MG TAB PO (21:26)
[2017-12-28] MEDS: ATORVASTATIN 40 MG TAB PO (21:34)
[2017-12-29] MEDS: HYDROCODONE/APAP (5/325) TAB PO (04:53)
[2017-12-29] MEDS: HYDROCODONE/HOMATROPINE 5ML CUP PO (05:00)
[2017-12-29 06:00] LABS: INR 2.25; PROTIME 25.4 Sec (11.9-14.9)
[2017-12-29] MEDS: ONDANSETRON 4 MG INJ IV (09:07)
[2017-12-29] MEDS: ALBUTEROL 0.083% (NEB) 2.5 MG/3 ML AMP HHN ×2 (09:19→14:28)
[2017-12-29] MEDS: AMOXICILLIN/CLAV 875 MG TAB PO (10:17)
[2017-12-29] MEDS: FLUTICASONE 0.05% 16 GM NAS SPRAY NASAL (10:17)
[2017-12-29] MEDS: LOSARTAN 50 MG TAB PO (10:18)
[2017-12-29] MEDS: FENOFIBRATE 145 MG TAB PO (10:18)
[2017-12-29] MEDS: BENZONATATE 100 MG CAP PO ×2 (10:18→13:47)
[2017-12-29] MEDS: PNEUMOCOCCAL VACCINE 0.5 ML INJ IM* (13:47)
== END 2017-12-29 15:20 | disposition home or self-care (01) | DRG 312 ==
LOC: MS3 12-27 01:25 → E/R 19:23 → MS3 12-27 03:31
DX: R55 Syncope and collapse (principal); K55.1 Chronic vascular disorders of intestine; J20.9 Acute bronchitis, unspecified; I10 Essential (primary) hypertension; E78.5 Hyperlipidemia, unspecified; J32.9 Chronic sinusitis, unspecified; Z79.01 Long term (current) use of anticoagulants; Z91.81 History of falling; Z87.891 Personal history of nicotine dependence; Z86.73 Personal history of transient ischemic attack (TIA), and cerebral infarction without residual deficits
CPT/HCPCS: 36415; 70450; 70551; 71045; 80053; 80061; 80307; 81001; 82550; 82553; 83036; 83735; 83880; 84100; 84439; 84443; 84484; 85025; 85610; 85730; 90732; 93005; 93880; 94640; 94664; 97161; 99285-25

== ENCOUNTER 2018-06-01 10:00 | Emergency (ER) | payer OTHER ==
[2018-06-01 10:59] LABS: ADD MAN DIFF? NO
[2018-06-01 11:06] LABS: BASOPHILS % 0.4 % (0.0-2.0); EOSINOPHILS # 0.1 10^3/ul (0.0-0.5); EOSINOPHILS % 1.2 % (0.0-7.0); HEMATOCRIT 40.9 % (42.0-52.0); HEMOGLOBIN 13.9 g/dl (14.0-18.0); LYMPHOCYTES # 1.5 10^3/ul (0.8-2.9); LYMPHOCYTES % 18.5 % (15.0-51.0); MEAN CORPUSCULAR HEMOGLOBIN 29.6 pg (29.0-33.0); MEAN CORPUSCULAR VOLUME 87.2 fl (82.0-101.0); MEAN PLATELET VOLUME 10.2 fl (7.4-10.4); MONOCYTE # 0.7 10^3/ul (0.3-0.9); MONOCYTES % 8.9 % (0.0-11.0); NEUTROPHIL # 5.7 10^3/ul (1.6-7.5); NEUTROPHILS % 70.8 % (39.0-77.0); PLATELET COUNT 202 10^3/UL (140-415); RED BLOOD COUNT 4.69 10^6/ul (4.70-6.10); RED CELL DISTRIBUTION WIDTH 12.8 % (11.5-14.5)
[2018-06-01] MEDS: SOD CHLORIDE 0.9% 500 ML IV (11:08)
[2018-06-01 11:19] LABS: ANION GAP 11 (8-16); BLOOD UREA NITROGEN 13 mg/dl (7-20); CALCIUM 8.9 mg/dl (8.4-10.2); CARBON DIOXIDE 26 mmol/L (21-31); CHLORIDE 107 mmol/L (97-110); CREATININE 0.85 mg/dl (0.61-1.24); GLUCOSE 144 mg/dl (70-220); POTASSIUM 3.5 mmol/L (3.5-5.1); SODIUM 140 mmol/L (135-144)
[2018-06-01 11:26] LABS: INR 1.97; PROTIME 22.9 Sec (11.9-14.9); PT RATIO 1.8
[2018-06-01 11:27] LABS: PARTIAL THROMBOPLASTIN TIME 43.9 Sec (25.0-35.0)
[2018-06-01] MEDS ORDERED: IOHEXOL 350MG/ML 50 ML BTL (11:38)
[2018-06-01] MEDS: SOD CHLORIDE 0.9% 100 ML (11:50)
== END 2018-06-01 13:58 | disposition home or self-care (01) ==
LOC: E/R 10:00
DX: J02.9 Acute pharyngitis, unspecified (principal); R40.2142 Coma scale, eyes open, spontaneous, at arrival to emergency department; R40.2362 Coma scale, best motor response, obeys commands, at arrival to emergency department; R40.2252 Coma scale, best verbal response, oriented, at arrival to emergency department; I10 Essential (primary) hypertension; J45.909 Unspecified asthma, uncomplicated; Z79.01 Long term (current) use of anticoagulants; Z86.73 Personal history of transient ischemic attack (TIA), and cerebral infarction without residual deficits
CPT/HCPCS: 36415; 71045; 75635; 80048; 85025; 85610; 85730; 96360; 96361; 99285-25

== ENCOUNTER 2018-06-05 20:43 | Emergency (ER) | payer OTHER ==
[2018-06-05 22:38] LABS: HEMATOCRIT 39.1 % (42.0-52.0); HEMOGLOBIN 13.1 g/dl (14.0-18.0); MEAN CORPUSCULAR HEMOGLOBIN 28.9 pg (29.0-33.0); MEAN CORPUSCULAR HGB CONC 33.5 g/dl (32.0-37.0); MEAN CORPUSCULAR VOLUME 86.1 fl (82.0-101.0); MEAN PLATELET VOLUME 9.4 fl (7.4-10.4); PLATELET COUNT 248 10^3/UL (140-415); POSITIVE DIFF @See below; RED BLOOD COUNT 4.54 10^6/ul (4.70-6.10); RED CELL DISTRIBUTION WIDTH 12.7 % (11.5-14.5)
[2018-06-05 22:38] LABS: WHITE BLOOD COUNT 6.7 10^3/ul (4.8-10.8)
[2018-06-05] MEDS: ASPIRIN 81 MG TAB PO (22:40)
[2018-06-05] MEDS: ACETAMINOPHEN 325 MG TAB PO (22:40)
[2018-06-05 22:43] LABS: ADD MAN DIFF? YES
[2018-06-05 23:03] LABS: ANION GAP 13 (8-16); BLOOD UREA NITROGEN 20 mg/dl (7-20); CALCIUM 9.1 mg/dl (8.4-10.2); CARBON DIOXIDE 26 mmol/L (21-31); CHLORIDE 106 mmol/L (97-110); CREATININE 0.93 mg/dl (0.61-1.24); GLUCOSE 113 mg/dl (70-220); POTASSIUM 3.7 mmol/L (3.5-5.1); SODIUM 141 mmol/L (135-144)
[2018-06-05 23:05] LABS: ANISOCYTOSIS 1+ (0-0); EOSINOPHILS % (M) 2 % (0-7); GIANT THROMBO% (M) 1 % (0-0); LYMPHOCYTES #M 2.2 10^3/ul (0.8-2.9); LYMPHOCYTES % (M) 34 % (15-51); MICROCYTOSIS 1+ (0-0); MONOCYTE #M 0.3 10^3/ul (0.3-0.9); MONOCYTES % (M) 5 % (0-11); PLATELET ESTIMATE NORMAL; POIKILOCYTOSIS 2+ (0-0); SEGMENTED NEUTROPHILS (M) % 59 % (39-77); SMUDGE%M 9 % (0-0)
[2018-06-05 23:15] LABS: TROPONIN-I < 0.012 ng/ml (0.000-0.120)
== END 2018-06-05 23:17 | disposition home or self-care (01) ==
LOC: E/R 23:17
DX: D64.9 Anemia, unspecified (principal); I10 Essential (primary) hypertension; J45.909 Unspecified asthma, uncomplicated; Z79.01 Long term (current) use of anticoagulants
CPT/HCPCS: 36415; 71045; 80048; 82962; 84484; 85025; 93005; 99285-25